=== PATIENT | male | born 1950 | race Caucasian/White ===

== ENCOUNTER 2023-05-24 13:00 | Outpatient (CLI) | payer MEDICARE | END 2023-05-24 13:01 | disposition home or self-care (01) | LOC: RAD 13:00 | PROVIDERS: ATTEND Internal Medicine Critical Care Medicine | DX: R06.00 Dyspnea, unspecified (principal); R91.8 Other nonspecific abnormal finding of lung field | CPT/HCPCS: 71046 ==

== ENCOUNTER 2023-06-03 10:15 | Outpatient (CLI) | payer MEDICARE | END 2023-06-03 10:16 | disposition home or self-care (01) | LOC: PET 10:15 | PROVIDERS: ATTEND Internal Medicine Critical Care Medicine | DX: R91.8 Other nonspecific abnormal finding of lung field (principal) | CPT/HCPCS: 78815; A9552 ==

== ENCOUNTER 2023-11-24 13:12 | Outpatient (CLI) | payer MEDICARE | END 2023-11-24 13:13 | disposition home or self-care (01) | LOC: RAD 13:12 | PROVIDERS: ATTEND Internal Medicine Critical Care Medicine | DX: R06.00 Dyspnea, unspecified (principal) | CPT/HCPCS: 71046 ==